=== PATIENT | female | born 1975 | race African-American/Black ===

== ENCOUNTER 2018-03-03 15:16 | Emergency (ER) | payer BC ==
[~2018-03-03] VITALS: Ht 162.6 cm; Wt 115.7 kg
[~2018-03-03 15:16] MED LIST: ASPIRIN325 PO; ATORVASTATIN CA40 MG PO; COREG3.125 MG PO; COZAAR 50 MG TA50 M2 PO
[2018-03-03] MEDS ORDERED: SERTRALINE HCL50 MG PO (15:37)
[2018-03-03] MEDS ORDERED: COREG6.25 MG PO (15:38)
[2018-03-03] MEDS ORDERED: COZAAR 25 MG TA25 M1 PO (15:38)
[2018-03-03 16:17] LABS: ABSOLUTE BASOPHILS 0.1 thou/uL (0.0-0.2); ABSOLUTE EOSINOPHILS 0.1 thou/uL (0.0-0.7); ABSOLUTE LYMPHOCYTES 1.7 thou/uL (0.8-5.3); ABSOLUTE MONOCYTES 0.4 thou/uL (0.0-1.2); EOSINOPHILS 1.4 %; LYMPHOCYTES 41.2 %; MCH 29.7 pg (26.0-34.0); MCHC 33.4 g/dL (28.0-37.0); MONOCYTES 8.5 %; NUCLEATED RBCS 0 /100WBC; PLATELET COUNT* 283 thou/uL (150-400); POLYS 46.9 %; RBC 4.38 mil/uL (4.20-5.00); RDW-CV 14.6 % (10.5-14.5); WBC 4.2 thou/uL (4.0-11.0)
[2018-03-03 16:26] LABS: CALCIUM 8.5 mg/dL (8.5-10.1); CREATININE 0.8 mg/dL (0.6-1.3); POTASSIUM 4.3 mmol/L (3.5-5.1)
[2018-03-03 16:30] LABS: ALBUMIN 3.3 g/dL (3.4-5.0); TOTAL BILIRUBIN 0.3 mg/dL (<0.1-1.0); TOTAL PROTEIN 6.9 g/dL (6.4-8.2)
[2018-03-03 16:57] LABS: URINE BILIRUBIN NEGATIVE (Negative); URINE BLOOD NEGATIVE (Negative); URINE CLARITY CLEAR; URINE COLOR YELLOW; URINE GLUCOSE-RANDOM NEGATIVE (Negative); URINE KETONES TRACE (Negative); URINE LEUKOCYTES-REFLEX NEGATIVE (Negative); URINE NITRITE-REFLEX NEGATIVE (Negative); URINE PROTEIN NEGATIVE (Negative); URINE UROBILINOGEN 0.2 E.U./dl (0.2-1.0)
[2018-03-03 19:07] VITALS: BP 154/93
--- NOTE | 2018-03-04 16:53 | EKG ---
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
== END 2018-03-03 19:08 | disposition home or self-care (01) ==
LOC: M.ERS 15:16
PROVIDERS: Nurse Practitioner Family
DX: I10 Essential (primary) hypertension (principal); R51 Headache; Z90.710 Acquired absence of both cervix and uterus

== ENCOUNTER 2019-03-24 08:20 | Emergency (ER) | payer OTHER, BC ==
[~2019-03-24] VITALS: Ht 160 cm; Wt 117.9 kg
[~2019-03-24 08:20] MED LIST changes: +COREG6.25 MG PO; +COZAAR 25 MG TA25 M1 PO; +SERTRALINE HCL50 MG PO
[2019-03-24 08:43] LABS: ABSOLUTE BASOPHILS 0.1 thou/uL (0.0-0.2); ABSOLUTE LYMPHOCYTES 1.7 thou/uL (0.8-5.3); ABSOLUTE MONOCYTES 0.4 thou/uL (0.0-1.2); ABSOLUTE NEUTROPHILS 2.1 thou/uL (1.6-8.1); BASOPHILS 1.2 %; EOSINOPHILS 0.7 %; HEMATOCRIT 41.4 % (37.0-47.0); HEMOGLOBIN 13.9 gm/dL (12.0-15.0); LYMPHOCYTES 40.8 %; MCH 29.7 pg (26.0-34.0); MCHC 33.7 g/dL (28.0-37.0); MCV 88.2 fL (80.0-100.0); MONOCYTES 8.6 %; MPV 7.5 fl. (7.2-11.1); NUCLEATED RBCS 0 /100WBC; PLATELET COUNT* 260 thou/uL (150-400); POLYS 48.7 %; RBC 4.69 mil/uL (4.20-5.00); RDW-CV 14.4 % (10.5-14.5); WBC 4.2 thou/uL (4.0-11.0)
[2019-03-24 08:54] LABS: CALCIUM 7.8 mg/dL (8.5-10.1); POTASSIUM 4.1 mmol/L (3.5-5.1)
[2019-03-24 08:57] LABS: APTT 26.4 Seconds (25.0-31.3); PROTIME 10.3 Seconds (9.20-11.50)
[2019-03-24 09:00] LABS: URINE BILIRUBIN NEGATIVE (Negative); URINE BLOOD NEGATIVE (Negative); URINE CLARITY CLEAR; URINE COLOR YELLOW; URINE GLUCOSE-RANDOM NEGATIVE (Negative); URINE KETONES NEGATIVE (Negative); URINE LEUKOCYTES-REFLEX NEGATIVE (Negative); URINE NITRITE-REFLEX NEGATIVE (Negative); URINE PROTEIN NEGATIVE (Negative); URINE UROBILINOGEN 0.2 E.U./dl (0.2-1.0)
[2019-03-24 09:05] LABS: ALBUMIN 3.2 g/dL (3.4-5.0); TOTAL BILIRUBIN 0.2 mg/dL (<0.1-1.0)
[2019-03-24] MEDS ORDERED: COREG6.25 MG PO (10:10)
[2019-03-24] MEDS ORDERED: COZAAR 25 MG TA25 M1 PO (10:10)
[2019-03-24 10:22] VITALS: BP 204/109
--- NOTE | 2019-03-24 12:57 | EKG ---
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: : 1975 Requested By: Saulo Del Real Order Number: [id number] MD: Quinn Antony Measurements Intervals [place] Rate: 81 P: 37 NV: 193 QRS: -20 QRSD: 99 T: -1 QT: 399 QTc: 464 Interpretive Statements Sinus rhythm Left ventricular hypertrophy Borderline T abnormalities, inferior leads Compared to ECG 03/03/2018 15:56:42 no change Electronically Signed On 03-24-2019 12:56:21 ON CALL PHARMACY TECHNICIAN by Quinn Antony [email or web address] <ELECTRONICALLY SIGNED> By: Quinn Antony MD, [facility] 03/24/19 1256 6 6 Quinn Antony MD, [facility] /EPI
== END 2019-03-24 10:23 | disposition home or self-care (01) ==
LOC: M.ERS 08:20
PROVIDERS: Family Medicine
DX: I10 Essential (primary) hypertension (principal); Z98.51 Tubal ligation status; Z90.710 Acquired absence of both cervix and uterus

== ENCOUNTER 2019-03-30 10:08 | Emergency (ER) | payer OTHER, BC ==
[~2019-03-30] VITALS: Ht 160 cm; Wt 120.2 kg
--- NOTE | ~2019-03-30 | EKG ---
[place] [address] ELECTROCARDIOGRAM REPORT Name: GIANNAINDIA Kassie Room: [facility]#: [id number] Admission: 03/30/19 Attend Phys: Discharge: 03/30/19 Date of : 71 Date of Service: 03/30/19 1026 Report #: [id number] THIS REPORT FOR: cc: TABITHA - No family physician/PCP FAM - No family physician/PCP Thong Benito MD ~ THIS REPORT FOR: //name// 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
[2019-03-30 10:47] LABS: HEMATOCRIT 43.7 % (37.0-47.0); HEMOGLOBIN 14.7 gm/dL (12.0-15.0); MCH 29.7 pg (26.0-34.0); MCHC 33.7 g/dL (28.0-37.0); MCV 88.2 fL (80.0-100.0); MPV 7.4 fl. (7.2-11.1); RBC 4.96 mil/uL (4.20-5.00); RDW-CV 14.5 % (10.5-14.5); WBC 2.2 thou/uL (4.0-11.0)
[2019-03-30 11:05] LABS: ALBUMIN 3.4 g/dL (3.4-5.0); CALCIUM 8.1 mg/dL (8.5-10.1); POTASSIUM 3.9 mmol/L (3.5-5.1); TOTAL BILIRUBIN 0.3 mg/dL (<0.1-1.0); TOTAL PROTEIN 7.5 g/dL (6.4-8.2)
[2019-03-30] MEDS ORDERED: TESSALON PERLE100 M1 PO (11:28)
[2019-03-30 11:53] VITALS: BP 169/97
== END 2019-03-30 11:53 | disposition home or self-care (01) ==
LOC: M.ERS 10:08
PROVIDERS: Emergency Medicine Emergency Medical Services
DX: I10 Essential (primary) hypertension (principal); J06.9 Acute upper respiratory infection, unspecified; Z98.51 Tubal ligation status; Z90.710 Acquired absence of both cervix and uterus